=== PATIENT | female | born 1985 | race African-American/Black ===

== ENCOUNTER 2020-12-06 18:51 | Emergency (ER) | payer MEDICAID, SELFPAY ==
[~2020-12-06] VITALS: Ht 160 cm; Wt 93.3 kg
[2020-12-06 19:32] VITALS: BP 124/72
== END 2020-12-06 21:59 | disposition home or self-care (01) ==
LOC: ED 19:00
DX: B34.9 Viral infection, unspecified (principal); J06.9 Acute upper respiratory infection, unspecified; Z20.822 Contact with and (suspected) exposure to COVID-19
CPT/HCPCS: 71045; 99284; U0003; U0005